=== PATIENT | female | born 1965 | race African-American/Black ===

== ENCOUNTER 2018-01-21 08:10 | Emergency (ER) | payer OTHER ==
[~2018-01-21] VITALS: Ht 160 cm; Wt 95.3 kg
[2018-01-21] MEDS ORDERED: PENICILLIN G BENZATHINE LA 1.2 MU TBX IM STA (08:35)
[2018-01-21] MEDS ORDERED: PROVERA2.5 MG (08:38)
[2018-01-21] MEDS ORDERED: DIPHTH/TETANUS/ACEL. PERTUSSIS 0.5 ML SYR IM ONE (08:45)
[2018-01-21 09:38] VITALS: BP 136/86
== END 2018-01-21 09:40 | disposition home or self-care (01) ==
LOC: FSED 08:10
DX: S60.211A Contusion of right wrist, initial encounter (principal); S60.221A Contusion of right hand, initial encounter; W20.8XXA Other cause of strike by thrown, projected or falling object, initial encounter; Y93.H3 Activity, building and construction; S60.511A Abrasion of right hand, initial encounter; Z23 Encounter for immunization; Z88.6 Allergy status to analgesic agent; Y92.512 Supermarket, store or market as the place of occurrence of the external cause; R03.0 Elevated blood-pressure reading, without diagnosis of hypertension
CPT/HCPCS: 83518; 99283; J0561